=== PATIENT | male | born 1985 | race Caucasian/White ===

== ENCOUNTER 2018-09-03 11:28 | Emergency (ER) | payer OTHER | END 2018-09-03 14:09 | disposition home or self-care (01) | LOC: FTE 11:28 | DX: M20.011 Mallet finger of right finger(s) (principal) | CPT/HCPCS: 29130; 73140; 99283-25 ==

== ENCOUNTER 2018-11-23 12:19 | Emergency (ER) | payer SELFPAY, OTHER | END 2018-11-23 13:04 | disposition left against medical advice (07) | LOC: FTE 12:19 | DX: Z53.21 Procedure and treatment not carried out due to patient leaving prior to being seen by health care provider (principal) ==

== ENCOUNTER 2018-11-23 14:55 | Emergency (ER) | payer OTHER ==
[2018-11-23] MEDS: KETOROLAC 60 MG INJ IM (17:47)
[2018-11-23] MEDS: HYDROCODONE/APAP (5/325) TAB PO (17:47)
[2018-11-23] MEDS: DEXAMETHASONE 10 MG/ML 1 ML INJ IM (17:48)
== END 2018-11-23 19:19 | disposition home or self-care (01) ==
LOC: FTE 14:55
DX: M51.16 Intervertebral disc disorders with radiculopathy, lumbar region (principal)
CPT/HCPCS: 72131; 96372; 99285-25